=== PATIENT | female | born 1985 | race Caucasian/White ===

== ENCOUNTER 2017-06-27 23:02 | Emergency (ER) | payer OTHER ==
--- NOTE | 2017-06-28 00:10 | ED Physician Documentation ---
Abdominal Pain - HISTORIAN Historian: patient - HPI Stated Complaint: left flank groin pain Chief Complaint: Abdominal Pain Additonal Information: left lower quadrant abdominal pain started abruptly this evening Onset: hours (3) Duration: sudden-onset Timing: still present Context: denies: out of country travel, bad food, recent trauma Severity: moderate Quality: aching, dull, sharp (occasionally) Front/Back of Body, Lg (Color): 1 - pain Associated Symptoms: back pain (left flank). denies: fever, chills, nausea, vomiting, coffee ground emesis, bloody emesis, diarrhea, bloody stools, grossly bloody stools, mucous (vaginal or rectal), sweating, loss of appetite, chest pain, neck pain Exacerbated by: movements Relieved by: nothing Further Comments: no - ROS CONST: no problems GI/: none CVS/RESP: none EYES/ENT: none MS/SKIN/LYMPH: none NEURO/PSYCH: none - SOCIAL HX Smoking History: non-smoker Alcohol Use: none Drug Use: none - FAMILY HX Family History: no significant history - PAST HX Past History: other (hx of ovarian cyst, ) Ischemic Bowel Risk Factors: none Other History: other (vaginal delivery term ) Immunizations: referred to PCP Home Medications: Ambulatory Orders Medication Instructions Recorded Phl399/FA/Omega3/Dha/Fish Oil 1 tab PO D 06/27/17 [ Gummies] Allergies/Adverse Reactions: Allergies Allergy/AdvReac Type Severity Reaction Status Date / Time No Known Allergies Allergy Verified 06/27/17 23:19 - VITAL SIGNS Vital Signs: Vital Signs Temp Pulse Resp BP Pulse Ox 98.3 F 48 L 14 112/56 100 06/27/17 23:03 06/27/17 23:03 06/27/17 23:03 06/27/17 23:03 06/27/17 23:03 - REVIEWED ASSESSMENTS Nursing Assessment Reviewed: Yes Vitals Reviewed: Yes Progress - Results/Orders Results/Orders: ua, ucg ordered - Progress Progress: pt. stable entire time in er, mild distress Critical Care Note - Critical Care Note Total Time (mins): 0 ED Results Lab/Radiology - Lab Results Lab Results: UA neg for infection, blood. UCG positive. - Radiology Radiology Impressions: no US available at this facility at this time. - Orders Orders: ED Orders Category Date Time Status URINALYSIS Routine Lab 06/27/17 23:07 Ordered URINE HCG Routine Lab 06/27/17 23:07 Ordered Abdominal Pain Physical Exam - Physical Exam General Appearance: alert, mild distress EENT: eye inspection normal, ENT inspection normal, pharynx normal, no signs of dehydration, MIK, no nystagmus, TM's nml NECK: normal inspection, thyroid normal, supple RESPIRATORY: no resp distress, chest non-tender, breath sounds normal CVS: reg rate & rhythm, heart sounds normal, equal pulses, no murmur, no gallop , PMI nml, no JVD, no friction rub ABDOMEN: soft, no organomegaly, normal bowel sounds, no distension, tenderness ( left lower quadrant). No: mass, McBurney's point tenderne, obturator sign, rebound, guarding, splenomegaly, Rovsing's sign BACK: normal inspection, no CVA tenderness SKIN: warm/dry, normal color EXTREMITIES: non-tender, normal range of motion, no evidence of injury, no edema NEURO: oriented X3, CN's nml as tested, motor nml, sensation nml, mood/affect nml, cognition normal Vital Signs: Vital Signs Temp Pulse Resp BP Pulse Ox 98.3 F 48 L 14 112/56 100 06/27/17 23:03 06/27/17 23:03 06/27/17 23:03 06/27/17 23:03 06/27/17 23:03 Discharge Clincal Impression: Pelvic pain complicating Qualifiers: Trimester: first trimester Qualified Code(s): O26.891 - Other specified related conditions, first trimester; R10.2 - Pelvic and perineal pain ; R10.2 - Pelvic and perineal pain Referrals: Silvina Bowden MD [Primary Care Provider] - 2 Days Comments: Coco discussed with Dr. Thapa, ER physician at [facility] [place]. Accepts transfer for pelvic US. Condition: Stable Disposition: 02 XFER T-[facility] Decision to Admit: NO Decision Time: 00:09
[2017-06-28 00:45] VITALS: BP 88/50
[2017-06-30 06:08] LABS: APPEARANCE,URINE CLOUDY (CLEAR); COLOR,URINE YELLOW (YELLOW); OCCULT BLOOD,URINE NEGATIVE (NEGATIVE); UROBILINOGEN URINE 0.2 Eu (0.2-1.0)
== END 2017-06-28 00:30 | disposition short-term general hospital (02) ==
LOC: ED 23:02
DX: R10.2 Pelvic and perineal pain (principal); O26.891 Other specified pregnancy related conditions, first trimester
CPT/HCPCS: 81002; 81025; 99284